=== PATIENT | female | born 1935 | race Caucasian/White ===

== ENCOUNTER 2017-07-04 11:46 | Inpatient (IN) ==
[2017-07-04 12:37] LABS: Basophils # 0.1 10*3/uL (0.0-0.2); Basophils % 0.9 % (0.0-0.8); Eosinophils # 0.3 10*3/uL (0.0-0.87); Eosinophils % 2.1 % (0.00-10.9); Hematocrit 39.7 VOL% (35.7-47.0); Hemoglobin 13.1 GM/DL (12.0-16.0); Immature Granulocytes % 0.4 %; Immature Granulocytes Absolute 0.05 #; Lymphocytes # 5.7 10*3/uL (1.4-4.0); Lymphocytes % 40.6 % (21.3-54.2); Mean Corpuscular Hemoglobin 32 PG (27-34); Mean Corpuscular Volume 96.8 FL (87-102); Mean Platelet Volume 11.1 FL (9.6-12.0); Monocytes # 1.1 10*3/uL (0.11-0.8); Monocytes % 7.6 % (1.7-12.7); Neutrophils # 6.8 10*3/uL (1.4-7.4); Neutrophils % 48.4 % (38.7-73.9); Platelet Count 199 T/CUMM (130-400); Red Cell Distribution Width 14.2 % (9.3-17.3); White Blood Count 14.1 T/CUMM (4-12)
[2017-07-04 12:46] LABS: PT Patient Result 10.2 SECS; Partial Thromboplastin Time 25.7 SECS (0-40)
[2017-07-04 13:41] LABS: Alanine Aminotransferase 19 U/L (13-56); Albumin 3.7 G/DL (3.4-5.0); Alkaline Phosphatase 93 U/L (45-117); Aspartate Amino Transferase 17 U/L (0-37); Blood Urea Nitrogen 15 MG/DL (7-18); Glucose 117 MG/DL (74-106); Osmolality,Calculated 280.4 MOS/KG (273-304); Potassium 4.3 MMOL/L (3.5-5.1); Sodium 140 MMOL/L (136-145); Total Protein 6.6 G/DL (6.4-8.3); Troponin I Only < 0.015 NG/ML (0.00-0.045)
[2017-07-04] MEDS ORDERED: ONDANSETRON 4 MG/2 ML VIAL IV PRN (15:04)
[2017-07-04] MEDS ORDERED: LABETALOL 20 MG/4 ML SYRINGE IV PRN (15:04)
[2017-07-04] MEDS ORDERED: MORPHINE 2 MG/1 ML SYRINGE IV PRN (15:04)
[2017-07-04] MEDS ORDERED: DOCUSATE SODIUM 100 MG CAPSULE PO PRN (15:04)
[2017-07-04] MEDS ORDERED: BISACODYL 5 MG TABLET PO PRN (15:04)
[2017-07-04] MEDS ORDERED: ACETAMINOPHEN 325 MG TABLET PO PRN (15:04)
[2017-07-04] MEDS ORDERED: ENOXAPARIN 40 MG/0.4 ML SYRINGE SUBCUT SCH (15:30)
[2017-07-04] MEDS: ASPIRIN 325 MG TABLET PO SCH (16:17)
[2017-07-04] MEDS: SODIUM CHLORIDE 0.9% 1,000 ML IV SCH ×2 (16:17→23:45)
[2017-07-04] MEDS ORDERED: GLUCAGON 1 MG VIAL IM PRN (16:51)
[2017-07-04] MEDS ORDERED: DEXTROSE 50% 25 GM/50 ML VIAL IV PRN (16:51)
[2017-07-04] MEDS: DILTIAZEM INJ 100 MG in SODIUM CHLORIDE 0.9% 100 ML IV SCH (18:29)
[2017-07-04] MEDS: INSULIN LISPRO 100 UNIT/ML SUBCUT SCH (20:11)
[2017-07-04] MEDS: ATORVASTATIN 40 MG TABLET PO SCH (20:34)
[2017-07-04 21:49] LABS: Apearance,Urine Slightly Hazy (Clear); Bacteria,Urine Occasional /HPF (Few); Bilirubin,Urine Negative (Negative); Blood, Urine Negative (Negative); Glucose,Urine (UA) Negative (Negative); Ketones,Urine 5 mg/dL (Negative); Nitrite,Urine Negative (Negative); Protein,Urine Negative; RBC,Urine <1 /HPF (0-4); Squamous Epithelial Cell,Urine Occasional /HPF (0-10); Urine Color Yellow (Yellow); Urine Specific Gravity 1.005 (1.001-1.035); Urine Urobilinogen < 2.0 EU/DL (0.2-1.0); WBC,Urine 4 /HPF (0-6)
[2017-07-04 21:53] LABS: Barbiturates Screen,Urine Negative (Negative); Benzodiazepines Screen,Urine Negative (Negative); Cannabinoid Screen,Urine Negative (Negative); Opiate Screen,Urine Negative (Negative); Phencyclidine Screen,Urine Negative (Negative)
[2017-07-05] MEDS: DILTIAZEM INJ 100 MG in SODIUM CHLORIDE 0.9% 100 ML IV SCH (03:56)
[2017-07-05 06:14] LABS: Risk Ratio 4.83
[2017-07-05] MEDS: SODIUM CHLORIDE 0.9% 1,000 ML IV SCH (07:40)
[2017-07-05] MEDS: INSULIN LISPRO 100 UNIT/ML SUBCUT SCH ×4 (08:31→20:25)
[2017-07-05] MEDS: PANTOPRAZOLE 40 MG TABLET PO SCH (09:33)
[2017-07-05] MEDS: ASPIRIN 325 MG TABLET PO SCH (09:33)
[2017-07-05] MEDS: APIXABAN 5 MG TABLET PO SCH ×2 (09:37→20:27)
[2017-07-05 09:48] LABS: Basophils # 0.1 10*3/uL (0.0-0.2); Basophils % 0.7 % (0.0-0.8); Eosinophils # 0.3 10*3/uL (0.0-0.87); Hematocrit 42.3 VOL% (35.7-47.0); Hemoglobin 14.4 GM/DL (12.0-16.0); Immature Granulocytes % 0.4 %; Immature Granulocytes Absolute 0.06 #; Lymphocytes # 7.5 10*3/uL (1.4-4.0); Lymphocytes % 45.9 % (21.3-54.2); Mean Corpuscular Hemoglobin 32 PG (27-34); Mean Corpuscular Volume 95.1 FL (87-102); Mean Platelet Volume 10.9 FL (9.6-12.0); Monocytes # 1.2 10*3/uL (0.11-0.8); Monocytes % 7.1 % (1.7-12.7); Neutrophils # 7.2 10*3/uL (1.4-7.4); Neutrophils % 43.9 % (38.7-73.9); Platelet Count 214 T/CUMM (130-400); Red Blood Count 4.45 MC/CUMM (3.8-5.5); Red Cell Distribution Width 14.6 % (9.3-17.3); White Blood Count 16.3 T/CUMM (4-12)
[2017-07-05 10:13] LABS: Calcium 8.7 MG/DL (8.5-10.1); Potassium 4.5 MMOL/L (3.5-5.1)
[2017-07-05 10:30] LABS: Band Neutrophils 1 % (0-10); Eosinophils 4 % (0-10); Hypochromasia 1+; Lymphocytes 35 % (20-55); Total Cells Counted 100
[2017-07-05 10:31] LABS: Smudge Cells Few
[2017-07-05 10:32] LABS: Platelet Estimate Normal; Segmented Neutrophils 49 % (50-85)
[2017-07-05] MEDS: DILTIAZEM 30 MG TABLET PO SCH ×4 (12:17→20:26)
[2017-07-05] MEDS: METOPROLOL TARTRATE 50 MG TABLET PO SCH ×2 (13:59→23:18)
[2017-07-05] MEDS: DOXYCYCLINE HYCLATE 100 MG CAPSULE PO SCH (20:26)
[2017-07-05] MEDS: ATORVASTATIN 40 MG TABLET PO SCH (20:26)
[2017-07-05] MEDS: DULoxetine 30 MG CAPSULE PO SCH (20:27)
[2017-07-06 05:14] LABS: Basophils # 0.1 10*3/uL (0.0-0.2); Basophils % 0.6 % (0.0-0.8); Eosinophils # 0.4 10*3/uL (0.0-0.87); Eosinophils % 2.3 % (0.00-10.9); Hematocrit 41.5 VOL% (35.7-47.0); Hemoglobin 14.3 GM/DL (12.0-16.0); Immature Granulocytes % 0.4 %; Immature Granulocytes Absolute 0.06 #; Lymphocytes # 7.3 10*3/uL (1.4-4.0); Lymphocytes % 46.4 % (21.3-54.2); Mean Corpuscular HGB Conc 34.5 GM/DL (32-36); Mean Corpuscular Hemoglobin 33 PG (27-34); Mean Corpuscular Volume 94.3 FL (87-102); Mean Platelet Volume 11.3 FL (9.6-12.0); Monocytes # 1.4 10*3/uL (0.11-0.8); Monocytes % 8.9 % (1.7-12.7); Neutrophils # 6.5 10*3/uL (1.4-7.4); Neutrophils % 41.4 % (38.7-73.9); Platelet Count 210 T/CUMM (130-400); Red Cell Distribution Width 14.6 % (9.3-17.3); White Blood Count 15.7 T/CUMM (4-12)
[2017-07-06 05:31] LABS: Calcium 8.7 MG/DL (8.5-10.1); Osmolality,Calculated 280.3 MOS/KG (273-304); Potassium 3.9 MMOL/L (3.5-5.1)
[2017-07-06 05:37] LABS: Calcium 8.7 MG/DL (8.5-10.1); Osmolality,Calculated 280.3 MOS/KG (273-304); Potassium 4.4 MMOL/L (3.5-5.1)
[2017-07-06 05:41] LABS: Band Neutrophils 2 % (0-10); Eosinophils 2 % (0-10); Lymphocytes 29 % (20-55); Segmented Neutrophils 59 % (50-85); Total Cells Counted 100
[2017-07-06 05:42] LABS: Atypical Lymphocytes Few; Microcytosis Slight
[2017-07-06 05:43] LABS: Platelet Estimate Normal; Smudge Cells Few
[2017-07-06] MEDS: INSULIN LISPRO 100 UNIT/ML SUBCUT SCH ×4 (08:44→20:54)
[2017-07-06] MEDS: METOPROLOL TARTRATE 50 MG TABLET PO SCH ×2 (09:37→20:54)
[2017-07-06] MEDS: DOXYCYCLINE HYCLATE 100 MG CAPSULE PO SCH ×2 (09:38→20:54)
[2017-07-06] MEDS: PANTOPRAZOLE 40 MG TABLET PO SCH (09:38)
[2017-07-06] MEDS: ASPIRIN EC 81 MG TABLET PO SCH (09:38)
[2017-07-06] MEDS: DILTIAZEM 30 MG TABLET PO SCH (09:38)
[2017-07-06] MEDS: APIXABAN 5 MG TABLET PO SCH ×2 (09:39→20:54)
[2017-07-06] MEDS: DULoxetine 30 MG CAPSULE PO SCH ×2 (09:40→20:54)
[2017-07-06] MEDS: DILTIAZEM 60 MG TABLET PO SCH ×3 (13:28→20:53)
[2017-07-06] MEDS: ATORVASTATIN 40 MG TABLET PO SCH (20:54)
[2017-07-07 05:44] LABS: Basophils # 0.1 10*3/uL (0.0-0.2); Basophils % 0.7 % (0.0-0.8); Eosinophils # 0.4 10*3/uL (0.0-0.87); Eosinophils % 2.5 % (0.00-10.9); Hematocrit 39.8 VOL% (35.7-47.0); Hemoglobin 13.3 GM/DL (12.0-16.0); Immature Granulocytes % 0.3 %; Immature Granulocytes Absolute 0.05 #; Lymphocytes % 49.3 % (21.3-54.2); Mean Corpuscular HGB Conc 33.4 GM/DL (32-36); Mean Corpuscular Hemoglobin 32 PG (27-34); Mean Corpuscular Volume 96.1 FL (87-102); Mean Platelet Volume 11.1 FL (9.6-12.0); Monocytes # 1.4 10*3/uL (0.11-0.8); Monocytes % 8.4 % (1.7-12.7); Neutrophils # 6.3 10*3/uL (1.4-7.4); Neutrophils % 38.8 % (38.7-73.9); Platelet Count 202 T/CUMM (130-400); Red Blood Count 4.14 MC/CUMM (3.8-5.5); Red Cell Distribution Width 14.5 % (9.3-17.3); White Blood Count 16.1 T/CUMM (4-12)
[2017-07-07 06:09] LABS: Calcium 8.5 MG/DL (8.5-10.1); Osmolality,Calculated 282.4 MOS/KG (273-304); Potassium 3.7 MMOL/L (3.5-5.1)
[2017-07-07 06:16] LABS: Band Neutrophils 2 % (0-10); Eosinophils 3 % (0-10); Lymphocytes 43 % (20-55); Segmented Neutrophils 44 % (50-85); Total Cells Counted 100
[2017-07-07 06:17] LABS: Atypical Lymphocytes Few; Hypochromasia 1+; Microcytosis Slight; Smudge Cells Few
[2017-07-07 06:18] LABS: Platelet Estimate Adequate
[2017-07-07 06:46] LABS: Calcium 8.9 MG/DL (8.5-10.1); Osmolality,Calculated 282.4 MOS/KG (273-304); Potassium 3.8 MMOL/L (3.5-5.1)
[2017-07-07] MEDS: INSULIN LISPRO 100 UNIT/ML SUBCUT SCH ×3 (08:56→17:18)
[2017-07-07] MEDS: ASPIRIN EC 81 MG TABLET PO SCH (10:04)
[2017-07-07] MEDS: METOPROLOL TARTRATE 50 MG TABLET PO SCH (10:04)
[2017-07-07] MEDS: DULoxetine 30 MG CAPSULE PO SCH (10:04)
[2017-07-07] MEDS: DOXYCYCLINE HYCLATE 100 MG CAPSULE PO SCH (10:05)
[2017-07-07] MEDS: PANTOPRAZOLE 40 MG TABLET PO SCH (10:05)
[2017-07-07] MEDS: APIXABAN 5 MG TABLET PO SCH (10:05)
[2017-07-07] MEDS: DILTIAZEM 60 MG TABLET PO SCH (10:05)
[2017-07-07 17:18] VITALS: BP 159/78
[2017-07-07] MEDS ORDERED: DILTIAZEM CD 240 MG CAPSULE PO SCH (21:00)
== END 2017-07-07 17:35 | disposition home or self-care (01) | DRG 65 ==
LOC: EDUNIT# → EDBD → N.ED 11:46 → N.EDINP 14:43 → N.5E 15:49 → N.CC 18:22
PROVIDERS: ADMIT Hospitalist; ATTEND Hospitalist

== ENCOUNTER 2018-10-30 11:35 | Observation (INO) ==
[2018-10-30] MEDS ORDERED: ASPIRIN 325 MG TABLET PO STA (12:02)
[2018-10-30 12:08] LABS: Basophils # 0.1 10*3/uL (0.0-0.2); Basophils % 0.8 % (0.0-0.8); Eosinophils # 0.5 10*3/uL (0.0-0.87); Eosinophils % 2.6 % (0.00-10.9); Hemoglobin 13.8 GM/DL (12.0-16.0); Immature Granulocytes % 0.4 %; Immature Granulocytes Absolute 0.07 #; Lymphocytes # 9.8 10*3/uL (1.4-4.0); Lymphocytes % 56.6 % (21.3-54.2); Mean Corpuscular HGB Conc 31.4 GM/DL (32-36); Mean Corpuscular Volume 99.8 FL (87-102); Mean Platelet Volume 11.3 FL (9.6-12.0); Neutrophils % 29.6 % (38.7-73.9); Platelet Count 177 T/CUMM (130-400); Red Blood Count 4.41 MC/CUMM (3.8-5.5); Red Cell Distribution Width 13.7 % (9.3-17.3); White Blood Count 17.3 T/CUMM (4-12)
[2018-10-30 12:17] LABS: PT Patient Result 10.7 SECS; Partial Thromboplastin Time 26.9 SECS (0-40)
[2018-10-30 12:29] LABS: Alanine Aminotransferase 28 U/L (13-56); Albumin 3.8 G/DL (3.4-5.0); Alkaline Phosphatase 103 U/L (45-117); Aspartate Amino Transferase 20 U/L (0-37); Blood Urea Nitrogen 26 MG/DL (7-18); Calcium 9.1 MG/DL (8.5-10.1); Glucose 132 MG/DL (74-106); Osmolality,Calculated 283.5 MOS/KG (273-304); Total Protein 6.7 G/DL (6.4-8.3)
[2018-10-30 13:03] LABS: Eosinophils 3 % (0-10); Lymphocytes 59 % (20-55); Platelet Estimate Normal; Segmented Neutrophils 27 % (50-85)
[2018-10-30 13:04] LABS: Total Cells Counted 100
[2018-10-30 13:05] LABS: Microcytosis Slight
[2018-10-30] MEDS ORDERED: ONDANSETRON 4 MG/2 ML VIAL IV PRN (13:33)
[2018-10-30] MEDS ORDERED: ACETAMINOPHEN 325 MG TABLET PO PRN (13:33)
[2018-10-30] MEDS ORDERED: LACTULOSE 20 GM/30 ML UDCUP PO PRN (13:33)
[2018-10-30] MEDS ORDERED: LORazepam 0.5 MG TABLET PO PRN (13:42)
[2018-10-30] MEDS ORDERED: FUROSEMIDE 40 MG TABLET PO PRN (13:42)
[2018-10-30 14:26] LABS: Folate > 24.0 NG/ML (5.4-24.0); Vitamin B12 625 PG/ML (211-911)
[2018-10-30 14:27] LABS: Risk Ratio 3.38; Thyroid Stimulating Hormone 4.42 uIU/ml (0.358-3.74); VLDL CHOLESTEROL 36.6 MG/DL
[2018-10-30] MEDS: SODIUM CHLORIDE 0.9% 1,000 ML IV SCH (20:28)
[2018-10-30] MEDS: DULoxetine 30 MG CAPSULE PO SCH (20:37)
[2018-10-30] MEDS ORDERED: LOSARTAN 50 MG TABLET PO SCH (21:00)
[2018-10-30] MEDS ORDERED: SIMVASTATIN 20 MG TABLET PO SCH (21:00)
[2018-10-30] MEDS ORDERED: APIXABAN 5 MG TABLET PO SCH (21:00)
[2018-10-30 22:21] LABS: Apearance,Urine CLEAR (Clear); Bacteria,Urine Many /HPF (Few); Bilirubin,Urine Negative (Negative); Blood, Urine Negative (Negative); Glucose,Urine (UA) Negative (Negative); Hyaline Casts,Urine 1 /LPF (0-3); Ketones,Urine Negative (Negative); Nitrite,Urine Positive (Negative); Protein,Urine Negative; RBC,Urine <1 /HPF (0-4); Squamous Epithelial Cell,Urine Occasional /HPF (0-10); Urine Color Yellow (Yellow); Urine Specific Gravity 1.008 (1.001-1.035); Urine Urobilinogen < 2.0 EU/DL (0.2-1.0); WBC,Urine 2 /HPF (0-6)
[2018-10-30 22:23] LABS: Barbiturates Screen,Urine Negative (Negative); Benzodiazepines Screen,Urine Negative (Negative); Cannabinoid Screen,Urine Negative (Negative); Opiate Screen,Urine Negative (Negative); Phencyclidine Screen,Urine Negative (Negative)
[2018-10-31 05:03] LABS: Basophils # 0.1 10*3/uL (0.0-0.2); Basophils % 0.7 % (0.0-0.8); Eosinophils # 0.5 10*3/uL (0.0-0.87); Eosinophils % 2.9 % (0.00-10.9); Hematocrit 40.1 VOL% (35.7-47.0); Hemoglobin 12.6 GM/DL (12.0-16.0); Immature Granulocytes % 0.4 %; Immature Granulocytes Absolute 0.06 #; Lymphocytes # 9.4 10*3/uL (1.4-4.0); Lymphocytes % 57.2 % (21.3-54.2); Mean Corpuscular HGB Conc 31.4 GM/DL (32-36); Mean Corpuscular Volume 98.8 FL (87-102); Mean Platelet Volume 11.4 FL (9.6-12.0); Monocytes % 9.4 % (1.7-12.7); Neutrophils % 29.4 % (38.7-73.9); Platelet Count 158 T/CUMM (130-400); Red Blood Count 4.06 MC/CUMM (3.8-5.5); Red Cell Distribution Width 13.6 % (9.3-17.3); White Blood Count 16.4 T/CUMM (4-12)
[2018-10-31 05:16] LABS: Calcium 8.3 MG/DL (8.5-10.1); Osmolality,Calculated 283.3 MOS/KG (273-304)
[2018-10-31 05:35] LABS: Eosinophils 5 % (0-10); Lymphocytes 47 % (20-55); Segmented Neutrophils 40 % (50-85); Total Cells Counted 100
[2018-10-31 05:36] LABS: Hypochromasia 1+; Microcytosis Slight; Platelet Estimate Adequate; Smudge Cells Few
[2018-10-31] MEDS ORDERED: LEVOFLOXACIN INJ 500 MG in PREMIX 1 EACH IV SCH (07:30)
[2018-10-31] MEDS ORDERED: RIVAROXABAN 20 MG TABLET PO SCH (08:00)
[2018-10-31] MEDS: DULoxetine 30 MG CAPSULE PO SCH (08:27)
[2018-10-31] MEDS ORDERED: PANTOPRAZOLE 40 MG TABLET PO SCH (09:00)
[2018-10-31] MEDS ORDERED: MOVE FREE JOINT HEALTH PO SCH (09:00)
[2018-10-31] MEDS ORDERED: RALOXIFENE 60 MG TABLET PO SCH (09:00)
[2018-10-31] MEDS ORDERED: POTASSIUM CHLORIDE 20 MEQ TABLET PO SCH (09:00)
[2018-10-31] MEDS ORDERED: METOPROLOL SUCCINATE XL 100 MG TABLET PO SCH (09:00)
[2018-10-31] MEDS ORDERED: ASPIRIN EC 81 MG TABLET PO SCH (09:00)
[2018-10-31 15:33] VITALS: BP 109/73
[2018-10-31] MEDS: SODIUM CHLORIDE 0.9% 1,000 ML IV SCH (17:44)
[2018-10-31] MEDS ORDERED: LOSARTAN 25 MG TABLET PO SCH (21:00)
== END 2018-10-31 17:21 ==
LOC: N.EDINP 11:35 → N.ED 11:35 → N.EDINP 15:20 → N.4E 16:03
PROVIDERS: ADMIT Internal Medicine; ATTEND Internal Medicine

== ENCOUNTER 2019-04-12 03:12 | Inpatient (IN) ==
[2019-04-12] MEDS ORDERED: AMIODARONE INJ 150 MG in DEXTROSE 5% 100 ML IV ONE (03:28)
[2019-04-12] MEDS ORDERED: AMIODARONE INJ 450 MG in DEXTROSE 5% 241 ML IV SCH ×2 (03:30→05:00)
[2019-04-12 03:46] LABS: Basophils # 0.1 10*3/uL (0.0-0.2); Basophils % 0.7 % (0.0-0.8); Eosinophils # 0.1 10*3/uL (0.0-0.87); Eosinophils % 0.6 % (0.00-10.9); Hematocrit 42.7 VOL% (35.7-47.0); Hemoglobin 13.6 GM/DL (12.0-16.0); Immature Granulocytes % 0.3 %; Immature Granulocytes Absolute 0.04 #; Lymphocytes # 4.4 10*3/uL (1.4-4.0); Mean Corpuscular HGB Conc 31.9 GM/DL (32-36); Mean Corpuscular Volume 95.7 FL (87-102); Mean Platelet Volume 10.8 FL (9.6-12.0); Monocytes % 7.7 % (1.7-12.7); Neutrophils % 61.7 % (38.7-73.9); Platelet Count 225 T/CUMM (130-400); Red Blood Count 4.46 MC/CUMM (3.8-5.5); Red Cell Distribution Width 13.9 % (9.3-17.3); White Blood Count 15.1 T/CUMM (4-12)
[2019-04-12 04:04] LABS: Albumin 3.2 G/DL (3.4-5.0); Bilirubin,Total 0.6 MG/DL (0.2-1.0); Calcium 8.9 MG/DL (8.5-10.1); Osmolality,Calculated 278.7 MOS/KG (273-304); Total Protein 7.1 G/DL (6.4-8.3)
[2019-04-12] MEDS ORDERED: cefTRIAXone 1,000 MG in SODIUM CHLORIDE 0.9% 100 ML IV STA (04:27)
[2019-04-12 04:36] LABS: Apearance,Urine Slightly Hazy (Clear); Bacteria,Urine Many /HPF (Few); Bilirubin,Urine Negative (Negative); Blood, Urine Negative (Negative); Glucose,Urine (UA) Negative (Negative); Ketones,Urine 5 mg/dL (Negative); Mucus,Urine Occasional /LPF (Occasional); Nitrite,Urine Negative (Negative); Protein,Urine 100 MG/DL; Squamous Epithelial Cell,Urine Occasional /HPF (0-10); Urine Specific Gravity 1.023 (1.001-1.035); Urine Urobilinogen < 2.0 EU/DL (0.2-1.0); WBC,Urine 5 /HPF (0-6)
[2019-04-12] MEDS ORDERED: cefTRIAXone 500 MG VIAL ONE (04:36)
[2019-04-12 04:37] LABS: Urine Color Dark Yellow (Yellow)
[2019-04-12] MEDS ORDERED: ZALEPLON 5 MG CAPSULE PO PRN (04:43)
[2019-04-12] MEDS ORDERED: DOCUSATE SODIUM 100 MG CAPSULE PO PRN (04:43)
[2019-04-12] MEDS ORDERED: GLUCAGON 1 MG VIAL IM PRN (04:43)
[2019-04-12] MEDS ORDERED: DEXTROSE 10% 250 ML BAG IV PRN (04:43)
[2019-04-12] MEDS ORDERED: guaiFENesin/DM ER 600-30 MG TABLET PO PRN (04:43)
[2019-04-12] MEDS: AZITHROMYCIN INJ 500 MG in SODIUM CHLORIDE 0.9% 250 ML IV SCH (07:22)
[2019-04-12] MEDS ORDERED: LORazepam 0.5 MG TABLET PO PRN (07:43)
[2019-04-12] MEDS ORDERED: FUROSEMIDE 40 MG TABLET PO PRN (07:43)
[2019-04-12] MEDS ORDERED: METOPROLOL TARTRATE 5 MG/5 ML VIAL IV ONE (07:47)
[2019-04-12] MEDS ORDERED: MOVE FREE JOINT HEALTH PO SCH (09:00)
[2019-04-12] MEDS ORDERED: POTASSIUM CHLORIDE 20 MEQ TABLET PO SCH (09:00)
[2019-04-12] MEDS ORDERED: METOPROLOL SUCCINATE XL 100 MG TABLET PO SCH (09:00)
[2019-04-12] MEDS ORDERED: APIXABAN 2.5 MG TABLET PO SCH (09:00)
[2019-04-12] MEDS: ROSUVASTATIN 20 MG TABLET PO SCH (10:02)
[2019-04-12] MEDS: NITROGLYCERIN 2% OINT 1 INCH/GM PACK TOP SCH ×3 (10:02→18:10)
[2019-04-12] MEDS: PANTOPRAZOLE 40 MG TABLET PO SCH (10:02)
[2019-04-12] MEDS: DULoxetine 30 MG CAPSULE PO SCH ×2 (10:02→20:20)
[2019-04-12] MEDS: RALOXIFENE 60 MG TABLET PO SCH (10:02)
[2019-04-12] MEDS: ASPIRIN EC 81 MG TABLET PO SCH (10:02)
[2019-04-12] MEDS: RIVAROXABAN 20 MG TABLET PO SCH (10:03)
[2019-04-12] MEDS ORDERED: FUROSEMIDE 40 MG/4 ML VIAL ONE (10:48)
[2019-04-12] MEDS ORDERED: FUROSEMIDE 40 MG/4 ML VIAL IV SCH (10:50)
[2019-04-12] MEDS ORDERED: FUROSEMIDE 40 MG/4 ML VIAL IV ONE ×2 (10:50→12:40)
[2019-04-12] MEDS ORDERED: methylPREDNISolone SOD SUC 125 MG/2 ML VIAL ONE (10:50)
[2019-04-12] MEDS ORDERED: LEVALBUTEROL 1.25 MG/3 ML NEB RESP TX ONE (10:50)
[2019-04-12] MEDS ORDERED: methylPREDNISolone SOD SUC 125 MG/2 ML VIAL IV ONE (10:50)
[2019-04-12 11:16] LABS: ABG Base Excess -8.2 MMOL/L (-2.5-2.5); ABG Oxygen Saturation 99.5 % (95-100); ABG PCO2 37.5 MM HG (35-48); ABG PH 7.287 (7.35-7.45); ABG TCO2 15.7 MMOL/L (23-27)
[2019-04-12] MEDS: METOPROLOL SUCCINATE XL 100 MG TABLET PO SCH (11:18)
[2019-04-12] MEDS: INSULIN LISPRO 100 UNIT/ML SUBCUT SCH ×4 (11:18→20:43)
[2019-04-12 11:45] LABS: Apearance,Urine CLOUDY (Clear); Bacteria,Urine Many /HPF (Few); Bilirubin,Urine Negative (Negative); Blood, Urine Negative (Negative); Glucose,Urine (UA) Negative (Negative); Hyaline Casts,Urine 62 /LPF (0-3); Ketones,Urine 20 mg/dL (Negative); Mucus,Urine Many /LPF (Occasional); Nitrite,Urine Negative (Negative); Protein,Urine 100 MG/DL; RBC,Urine 11 /HPF (0-4); Squamous Epithelial Cell,Urine Occasional /HPF (0-10); Urine Color Amber (Yellow); Urine Specific Gravity 1.028 (1.001-1.035); Urine Urobilinogen < 2.0 EU/DL (0.2-1.0); WBC,Urine 54 /HPF (0-6)
[2019-04-12 13:07] LABS: Calcium 8.8 MG/DL (8.5-10.1)
[2019-04-12] MEDS: METOPROLOL TARTRATE 5 MG/5 ML VIAL IV PRN ×3 (13:18→20:21)
[2019-04-12 13:34] LABS: Basophils % 0.2 % (0.0-0.8); Hematocrit 43.2 VOL% (35.7-47.0); Hemoglobin 13.9 GM/DL (12.0-16.0); Immature Granulocytes % 0.9 %; Immature Granulocytes Absolute 0.12 #; Lymphocytes # 2.9 10*3/uL (1.4-4.0); Lymphocytes % 21.7 % (21.3-54.2); Mean Corpuscular HGB Conc 32.2 GM/DL (32-36); Mean Corpuscular Volume 95.4 FL (87-102); Mean Platelet Volume 11.4 FL (9.6-12.0); Monocytes % 4.8 % (1.7-12.7); Neutrophils % 72.4 % (38.7-73.9); Platelet Count 202 T/CUMM (130-400); Red Blood Count 4.53 MC/CUMM (3.8-5.5); White Blood Count 13.5 T/CUMM (4-12)
[2019-04-12 13:46] LABS: INR 1.6; PT Patient Result 17.1 SECS (9.6-12.2)
[2019-04-12] MEDS: FUROSEMIDE 40 MG/4 ML VIAL IV SCH (16:36)
[2019-04-13] MEDS: NITROGLYCERIN 2% OINT 1 INCH/GM PACK TOP SCH ×4 (00:41→18:59)
[2019-04-13 04:55] LABS: Basophils % 0.1 % (0.0-0.8); Hematocrit 40.5 VOL% (35.7-47.0); Hemoglobin 13.2 GM/DL (12.0-16.0); Immature Granulocytes % 0.4 %; Immature Granulocytes Absolute 0.09 #; Lymphocytes # 6.9 10*3/uL (1.4-4.0); Lymphocytes % 30.4 % (21.3-54.2); Mean Corpuscular HGB Conc 32.6 GM/DL (32-36); Mean Corpuscular Volume 93.8 FL (87-102); Mean Platelet Volume 11.7 FL (9.6-12.0); Monocytes % 4.1 % (1.7-12.7); Platelet Count 197 T/CUMM (130-400); Red Blood Count 4.32 MC/CUMM (3.8-5.5); Red Cell Distribution Width 13.9 % (9.3-17.3); White Blood Count 22.6 T/CUMM (4-12)
[2019-04-13] MEDS: cefTRIAXone 1,000 MG in SYRINGE 1 EACH IV SCH (05:10)
[2019-04-13 05:30] LABS: Calcium 8.9 MG/DL (8.5-10.1)
[2019-04-13 05:41] LABS: Band Neutrophils 3 % (0-10); Lymphocytes 25 % (20-55); Metamyelocytes 1 %; Reactive Lymphocytes Few; Segmented Neutrophils 67 % (50-85); Total Cells Counted 100
[2019-04-13 05:42] LABS: Ovalocytes 1+; Platelet Estimate Normal
[2019-04-13] MEDS: AZITHROMYCIN INJ 500 MG in SODIUM CHLORIDE 0.9% 250 ML IV SCH (06:20)
[2019-04-13] MEDS: INSULIN LISPRO 100 UNIT/ML SUBCUT SCH ×4 (07:47→20:42)
[2019-04-13] MEDS ORDERED: DIGOXIN 0.5 MG/2 ML AMP IV ONE ×2 (08:33→15:00)
[2019-04-13] MEDS: PANTOPRAZOLE 40 MG TABLET PO SCH (08:36)
[2019-04-13] MEDS: RALOXIFENE 60 MG TABLET PO SCH (08:36)
[2019-04-13] MEDS: ASPIRIN EC 81 MG TABLET PO SCH (08:36)
[2019-04-13] MEDS: RIVAROXABAN 20 MG TABLET PO SCH (08:36)
[2019-04-13] MEDS: FUROSEMIDE 40 MG/4 ML VIAL IV SCH ×2 (08:37→16:54)
[2019-04-13] MEDS: ROSUVASTATIN 20 MG TABLET PO SCH (08:37)
[2019-04-13] MEDS: DULoxetine 30 MG CAPSULE PO SCH ×2 (08:37→20:42)
[2019-04-13] MEDS: METOPROLOL SUCCINATE XL 100 MG TABLET PO SCH (08:53)
[2019-04-13 13:56] LABS: ABG Base Excess -0.6 MMOL/L (-2.5-2.5); ABG HCO3 23.9 MMOL/L (20-26); ABG Oxygen Saturation 99.1 % (95-100); ABG PCO2 40.1 MM HG (35-48); ABG PH 7.389 (7.35-7.45); Pt O2 Delivery Device Other
[2019-04-14] MEDS: NITROGLYCERIN 2% OINT 1 INCH/GM PACK TOP SCH ×4 (00:42→18:20)
[2019-04-14] MEDS ORDERED: NITROGLYCERIN SL 0.4 MG TABLET SL ONE (03:48)
[2019-04-14] MEDS ORDERED: ASPIRIN CHEW 81 MG TABLET PO ONE (03:48)
[2019-04-14] MEDS ORDERED: NITROGLYCERIN SL 0.4 MG TABLET SL PRN (03:48)
[2019-04-14] MEDS ORDERED: MORPHINE 4 MG/1 ML VIAL IV PRN (03:48)
[2019-04-14] MEDS ORDERED: ASPIRIN 325 MG TABLET ONE (03:48)
[2019-04-14 04:05] LABS: Basophils # 0.1 10*3/uL (0.0-0.2); Basophils % 0.3 % (0.0-0.8); Eosinophils # 0.2 10*3/uL (0.0-0.87); Eosinophils % 0.9 % (0.00-10.9); Hematocrit 42.6 VOL% (35.7-47.0); Hemoglobin 13.8 GM/DL (12.0-16.0); Immature Granulocytes % 0.5 %; Immature Granulocytes Absolute 0.13 #; Lymphocytes % 45.7 % (21.3-54.2); Mean Corpuscular HGB Conc 32.4 GM/DL (32-36); Mean Corpuscular Volume 93.8 FL (87-102); Mean Platelet Volume 10.9 FL (9.6-12.0); Monocytes % 6.2 % (1.7-12.7); Neutrophils % 46.4 % (38.7-73.9); Platelet Count 219 T/CUMM (130-400); Red Blood Count 4.54 MC/CUMM (3.8-5.5); Red Cell Distribution Width 13.8 % (9.3-17.3); White Blood Count 24.1 T/CUMM (4-12)
[2019-04-14 04:34] LABS: Calcium 8.2 MG/DL (8.5-10.1); Osmolality,Calculated 280.7 MOS/KG (273-304)
[2019-04-14 04:37] LABS: Lymphocytes 32 % (20-55); Platelet Estimate Adequate; Segmented Neutrophils 60 % (50-85); Total Cells Counted 100
[2019-04-14 04:38] LABS: Polychromasia Slight
[2019-04-14] MEDS: cefTRIAXone 1,000 MG in SYRINGE 1 EACH IV SCH (05:36)
[2019-04-14] MEDS: AZITHROMYCIN INJ 500 MG in SODIUM CHLORIDE 0.9% 250 ML IV SCH (05:40)
[2019-04-14] MEDS: INSULIN LISPRO 100 UNIT/ML SUBCUT SCH ×4 (07:46→20:29)
[2019-04-14] MEDS: RIVAROXABAN 20 MG TABLET PO SCH (09:20)
[2019-04-14] MEDS: ASPIRIN EC 81 MG TABLET PO SCH (09:20)
[2019-04-14] MEDS: FUROSEMIDE 40 MG/4 ML VIAL IV SCH ×2 (09:20→16:14)
[2019-04-14] MEDS: ROSUVASTATIN 20 MG TABLET PO SCH (09:20)
[2019-04-14] MEDS: DULoxetine 30 MG CAPSULE PO SCH ×2 (09:21→20:28)
[2019-04-14] MEDS: RALOXIFENE 60 MG TABLET PO SCH (09:21)
[2019-04-14] MEDS: PANTOPRAZOLE 40 MG TABLET PO SCH (09:21)
[2019-04-14] MEDS: METOPROLOL SUCCINATE XL 100 MG TABLET PO SCH (09:21)
[2019-04-14] MEDS ORDERED: POLYETHYLENE GLYCOL POWDER 17 GM PACK PO PRN (11:52)
[2019-04-14] MEDS: DOCUSATE SODIUM 100 MG CAPSULE PO SCH (12:08)
[2019-04-14] MEDS: DIGOXIN 0.125 MG TABLET PO SCH (12:20)
[2019-04-14] MEDS: IPRATROPIUM 500 MCG/2.5 ML NEB RESP TX SCH ×2 (13:20→19:30)
[2019-04-14] MEDS: NITROFURANTOIN MACRO/MONO 100 MG CAPSULE PO SCH ×2 (14:03→20:29)
[2019-04-14] MEDS: TOBRAMYCIN INJ 300 MG in SODIUM CHLORIDE 0.9% 100 ML IV SCH (16:15)
[2019-04-14] MEDS: BUDESONIDE 0.5 MG/2 ML NEB RESP TX SCH (19:30)
[2019-04-15] MEDS: NITROGLYCERIN 2% OINT 1 INCH/GM PACK TOP SCH ×5 (00:40→23:50)
[2019-04-15 05:16] LABS: Basophils # 0.1 10*3/uL (0.0-0.2); Basophils % 0.4 % (0.0-0.8); Eosinophils # 0.3 10*3/uL (0.0-0.87); Eosinophils % 1.4 % (0.00-10.9); Hematocrit 45.2 VOL% (35.7-47.0); Hemoglobin 14.9 GM/DL (12.0-16.0); Immature Granulocytes % 0.5 %; Lymphocytes % 46.8 % (21.3-54.2); Mean Corpuscular Volume 92.8 FL (87-102); Mean Platelet Volume 10.9 FL (9.6-12.0); Neutrophils % 43.9 % (38.7-73.9); Platelet Count 228 T/CUMM (130-400); Red Blood Count 4.87 MC/CUMM (3.8-5.5); Red Cell Distribution Width 13.7 % (9.3-17.3); White Blood Count 21.4 T/CUMM (4-12)
[2019-04-15 05:30] LABS: Calcium 8.4 MG/DL (8.5-10.1); Osmolality,Calculated 274.8 MOS/KG (273-304)
[2019-04-15 05:42] LABS: Hypochromasia Slight; Platelet Estimate Adequate
[2019-04-15] MEDS: AZITHROMYCIN INJ 500 MG in SODIUM CHLORIDE 0.9% 250 ML IV SCH (05:55)
[2019-04-15] MEDS: IPRATROPIUM 500 MCG/2.5 ML NEB RESP TX SCH ×4 (07:44→19:41)
[2019-04-15] MEDS: BUDESONIDE 0.5 MG/2 ML NEB RESP TX SCH ×2 (07:44→19:41)
[2019-04-15] MEDS ORDERED: MAGNESIUM SULF RIDER 2 GM in PREMIX 1 EACH IV ONE (07:45)
[2019-04-15] MEDS ORDERED: POTASSIUM CHLORIDE RIDER 10 MEQ in PREMIX 1 EACH IV PRN (07:45)
[2019-04-15] MEDS: INSULIN LISPRO 100 UNIT/ML SUBCUT SCH ×4 (07:57→22:01)
[2019-04-15] MEDS ORDERED: TOBRAMYCIN INJ 300 MG in SODIUM CHLORIDE 0.9% 100 ML IV SCH (08:00)
[2019-04-15] MEDS: DULoxetine 30 MG CAPSULE PO SCH ×2 (09:04→22:00)
[2019-04-15] MEDS: NITROFURANTOIN MACRO/MONO 100 MG CAPSULE PO SCH ×2 (09:04→22:01)
[2019-04-15] MEDS: METOPROLOL SUCCINATE XL 100 MG TABLET PO SCH (09:04)
[2019-04-15] MEDS: POTASSIUM CHLORIDE 20 MEQ TABLET PO PRN ×3 (09:04→13:25)
[2019-04-15] MEDS: FUROSEMIDE 40 MG TABLET PO SCH (09:05)
[2019-04-15] MEDS: RALOXIFENE 60 MG TABLET PO SCH (09:05)
[2019-04-15] MEDS: RIVAROXABAN 20 MG TABLET PO SCH (09:05)
[2019-04-15] MEDS: ROSUVASTATIN 20 MG TABLET PO SCH (09:05)
[2019-04-15] MEDS: ASPIRIN EC 81 MG TABLET PO SCH (09:05)
[2019-04-15] MEDS: DOCUSATE SODIUM 100 MG CAPSULE PO SCH (09:05)
[2019-04-15] MEDS: PANTOPRAZOLE 40 MG TABLET PO SCH (09:08)
[2019-04-15] MEDS: DIGOXIN 0.125 MG TABLET PO SCH (13:25)
[2019-04-15] MEDS: TOBRAMYCIN INJ 300 MG in SODIUM CHLORIDE 0.9% 100 ML IV SCH (17:51)
[2019-04-16] MEDS: IPRATROPIUM 500 MCG/2.5 ML NEB RESP TX SCH ×4 (01:10→19:07)
[2019-04-16] MEDS: ACETAMINOPHEN 325 MG TABLET PO PRN ×2 (02:07→20:43)
[2019-04-16 05:00] LABS: Basophils # 0.1 10*3/uL (0.0-0.2); Basophils % 0.5 % (0.0-0.8); Eosinophils # 0.4 10*3/uL (0.0-0.87); Eosinophils % 1.8 % (0.00-10.9); Hematocrit 44.7 VOL% (35.7-47.0); Hemoglobin 14.5 GM/DL (12.0-16.0); Immature Granulocytes % 0.6 %; Immature Granulocytes Absolute 0.12 #; Lymphocytes # 8.2 10*3/uL (1.4-4.0); Lymphocytes % 38.4 % (21.3-54.2); Mean Corpuscular HGB Conc 32.4 GM/DL (32-36); Mean Corpuscular Volume 93.5 FL (87-102); Monocytes % 6.7 % (1.7-12.7); Platelet Count 240 T/CUMM (130-400); Red Blood Count 4.78 MC/CUMM (3.8-5.5); Red Cell Distribution Width 13.4 % (9.3-17.3); White Blood Count 21.5 T/CUMM (4-12)
[2019-04-16 05:15] LABS: Calcium 8.4 MG/DL (8.5-10.1); Osmolality,Calculated 278.5 MOS/KG (273-304)
[2019-04-16 05:22] LABS: Eosinophils 1 % (0-10); Lymphocytes 26 % (20-55); Segmented Neutrophils 68 % (50-85); Total Cells Counted 100
[2019-04-16 05:23] LABS: Platelet Estimate Normal
[2019-04-16 05:24] LABS: Polychromasia Slight
[2019-04-16] MEDS: AZITHROMYCIN INJ 500 MG in SODIUM CHLORIDE 0.9% 250 ML IV SCH (06:55)
[2019-04-16] MEDS: NITROGLYCERIN 2% OINT 1 INCH/GM PACK TOP SCH (07:05)
[2019-04-16] MEDS: BUDESONIDE 0.5 MG/2 ML NEB RESP TX SCH ×2 (07:56→19:07)
[2019-04-16] MEDS: INSULIN LISPRO 100 UNIT/ML SUBCUT SCH ×4 (07:56→20:44)
[2019-04-16] MEDS ORDERED: POTASSIUM CHLORIDE 20 MEQ TABLET PO SCH (09:00)
[2019-04-16] MEDS: ROSUVASTATIN 20 MG TABLET PO SCH (09:22)
[2019-04-16] MEDS: METOPROLOL SUCCINATE XL 100 MG TABLET PO SCH (09:22)
[2019-04-16] MEDS: NITROFURANTOIN MACRO/MONO 100 MG CAPSULE PO SCH (09:22)
[2019-04-16] MEDS: ASPIRIN EC 81 MG TABLET PO SCH (09:23)
[2019-04-16] MEDS: FUROSEMIDE 40 MG TABLET PO SCH (09:23)
[2019-04-16] MEDS: RIVAROXABAN 20 MG TABLET PO SCH (09:23)
[2019-04-16] MEDS: PANTOPRAZOLE 40 MG TABLET PO SCH (09:23)
[2019-04-16] MEDS: RALOXIFENE 60 MG TABLET PO SCH (09:23)
[2019-04-16] MEDS: DOCUSATE SODIUM 100 MG CAPSULE PO SCH (09:23)
[2019-04-16] MEDS: MAGNESIUM CHLORIDE 64 MG TABLET PO SCH (09:24)
[2019-04-16] MEDS: DULoxetine 30 MG CAPSULE PO SCH ×2 (09:24→20:43)
[2019-04-16] MEDS: DIGOXIN 0.125 MG TABLET PO SCH (12:59)
[2019-04-16] MEDS: ERTAPENEM 1,000 MG in SODIUM CHLORIDE 0.9% 100 ML IV SCH (15:23)
[2019-04-17] MEDS: IPRATROPIUM 500 MCG/2.5 ML NEB RESP TX SCH ×4 (00:52→20:08)
[2019-04-17] MEDS: AZITHROMYCIN INJ 500 MG in SODIUM CHLORIDE 0.9% 250 ML IV SCH (06:15)
[2019-04-17 06:27] LABS: Basophils # 0.1 10*3/uL (0.0-0.2); Basophils % 0.6 % (0.0-0.8); Eosinophils # 0.5 10*3/uL (0.0-0.87); Eosinophils % 2.6 % (0.00-10.9); Hematocrit 41.8 VOL% (35.7-47.0); Hemoglobin 13.7 GM/DL (12.0-16.0); Immature Granulocytes % 0.5 %; Immature Granulocytes Absolute 0.09 #; Lymphocytes # 8.9 10*3/uL (1.4-4.0); Lymphocytes % 45.8 % (21.3-54.2); Mean Corpuscular HGB Conc 32.8 GM/DL (32-36); Mean Corpuscular Volume 92.1 FL (87-102); Mean Platelet Volume 10.9 FL (9.6-12.0); Monocytes % 6.6 % (1.7-12.7); Neutrophils % 43.9 % (38.7-73.9); Platelet Count 226 T/CUMM (130-400); Red Blood Count 4.54 MC/CUMM (3.8-5.5); Red Cell Distribution Width 13.4 % (9.3-17.3); White Blood Count 19.4 T/CUMM (4-12)
[2019-04-17 06:44] LABS: Calcium 8.5 MG/DL (8.5-10.1)
[2019-04-17 06:49] LABS: Hypochromasia 1+; Microcytosis 1+; Platelet Estimate Normal
[2019-04-17] MEDS: BUDESONIDE 0.5 MG/2 ML NEB RESP TX SCH ×2 (07:45→20:08)
[2019-04-17] MEDS: ROSUVASTATIN 20 MG TABLET PO SCH (08:57)
[2019-04-17] MEDS: RIVAROXABAN 20 MG TABLET PO SCH (08:58)
[2019-04-17] MEDS: MAGNESIUM CHLORIDE 64 MG TABLET PO SCH (08:58)
[2019-04-17] MEDS: METOPROLOL SUCCINATE XL 100 MG TABLET PO SCH (08:58)
[2019-04-17] MEDS: PANTOPRAZOLE 40 MG TABLET PO SCH (08:58)
[2019-04-17] MEDS: FUROSEMIDE 40 MG TABLET PO SCH (08:58)
[2019-04-17] MEDS: ASPIRIN EC 81 MG TABLET PO SCH (08:58)
[2019-04-17] MEDS: RALOXIFENE 60 MG TABLET PO SCH (08:58)
[2019-04-17] MEDS: DOCUSATE SODIUM 100 MG CAPSULE PO SCH (08:59)
[2019-04-17] MEDS: DULoxetine 30 MG CAPSULE PO SCH ×2 (08:59→22:12)
[2019-04-17] MEDS: INSULIN LISPRO 100 UNIT/ML SUBCUT SCH ×4 (13:01→20:09)
[2019-04-17] MEDS: DIGOXIN 0.125 MG TABLET PO SCH (13:02)
[2019-04-17] MEDS: ERTAPENEM 1,000 MG in SODIUM CHLORIDE 0.9% 100 ML IV SCH (16:02)
[2019-04-18] MEDS: IPRATROPIUM 500 MCG/2.5 ML NEB RESP TX SCH ×4 (00:20→18:56)
[2019-04-18 05:27] LABS: Basophils # 0.1 10*3/uL (0.0-0.2); Basophils % 0.7 % (0.0-0.8); Eosinophils # 0.5 10*3/uL (0.0-0.87); Eosinophils % 2.5 % (0.00-10.9); Hematocrit 42.1 VOL% (35.7-47.0); Hemoglobin 13.8 GM/DL (12.0-16.0); Immature Granulocytes % 0.5 %; Lymphocytes # 7.8 10*3/uL (1.4-4.0); Lymphocytes % 38.3 % (21.3-54.2); Mean Corpuscular HGB Conc 32.8 GM/DL (32-36); Mean Corpuscular Volume 94.6 FL (87-102); Mean Platelet Volume 11.1 FL (9.6-12.0); Platelet Count 237 T/CUMM (130-400); Red Blood Count 4.45 MC/CUMM (3.8-5.5); Red Cell Distribution Width 13.3 % (9.3-17.3); White Blood Count 20.4 T/CUMM (4-12)
[2019-04-18 05:47] LABS: Calcium 8.7 MG/DL (8.5-10.1); Osmolality,Calculated 278.5 MOS/KG (273-304)
[2019-04-18 06:06] LABS: Anisocytosis Slight; Band Neutrophils 9 % (0-10); Eosinophils 2 % (0-10); Lymphocytes 26 % (20-55); Segmented Neutrophils 55 % (50-85); Total Cells Counted 100
[2019-04-18 06:07] LABS: Platelet Estimate Normal; Smudge Cells 1+
[2019-04-18] MEDS: AZITHROMYCIN INJ 500 MG in SODIUM CHLORIDE 0.9% 250 ML IV SCH (06:15)
[2019-04-18] MEDS: RIVAROXABAN 20 MG TABLET PO SCH (07:58)
[2019-04-18] MEDS: BUDESONIDE 0.5 MG/2 ML NEB RESP TX SCH ×2 (08:44→18:56)
[2019-04-18] MEDS: INSULIN LISPRO 100 UNIT/ML SUBCUT SCH ×4 (09:31→20:34)
[2019-04-18] MEDS: ROSUVASTATIN 20 MG TABLET PO SCH (09:33)
[2019-04-18] MEDS: ASPIRIN EC 81 MG TABLET PO SCH (09:33)
[2019-04-18] MEDS: PANTOPRAZOLE 40 MG TABLET PO SCH (09:33)
[2019-04-18] MEDS: RALOXIFENE 60 MG TABLET PO SCH (09:33)
[2019-04-18] MEDS: METOPROLOL SUCCINATE XL 100 MG TABLET PO SCH (09:33)
[2019-04-18] MEDS: FUROSEMIDE 40 MG TABLET PO SCH (09:33)
[2019-04-18] MEDS: MAGNESIUM CHLORIDE 64 MG TABLET PO SCH (09:33)
[2019-04-18] MEDS: DOCUSATE SODIUM 100 MG CAPSULE PO SCH (09:33)
[2019-04-18] MEDS: DULoxetine 30 MG CAPSULE PO SCH ×2 (09:33→20:33)
[2019-04-18] MEDS: DIGOXIN 0.125 MG TABLET PO SCH (13:25)
[2019-04-18] MEDS: ERTAPENEM 1,000 MG in SODIUM CHLORIDE 0.9% 100 ML IV SCH (14:40)
[2019-04-18] MEDS: MEROPENEM 500 MG in SODIUM CHLORIDE 0.9% 100 ML IV SCH ×2 (18:03→23:27)
[2019-04-18] MEDS: ACETAMINOPHEN 325 MG TABLET PO PRN (23:33)
[2019-04-19] MEDS: IPRATROPIUM 500 MCG/2.5 ML NEB RESP TX SCH ×4 (00:15→19:17)
[2019-04-19] MEDS: MEROPENEM 500 MG in SODIUM CHLORIDE 0.9% 100 ML IV SCH ×3 (06:00→18:31)
[2019-04-19] MEDS: BUDESONIDE 0.5 MG/2 ML NEB RESP TX SCH ×2 (07:43→19:17)
[2019-04-19] MEDS: ROSUVASTATIN 20 MG TABLET PO SCH (09:24)
[2019-04-19] MEDS: METOPROLOL SUCCINATE XL 100 MG TABLET PO SCH (09:24)
[2019-04-19] MEDS: RALOXIFENE 60 MG TABLET PO SCH (09:24)
[2019-04-19] MEDS: PANTOPRAZOLE 40 MG TABLET PO SCH (09:24)
[2019-04-19] MEDS: MAGNESIUM CHLORIDE 64 MG TABLET PO SCH (09:24)
[2019-04-19] MEDS: RIVAROXABAN 20 MG TABLET PO SCH (09:24)
[2019-04-19] MEDS: LOSARTAN 25 MG TABLET PO SCH (09:24)
[2019-04-19] MEDS: DULoxetine 30 MG CAPSULE PO SCH ×2 (09:25→20:50)
[2019-04-19] MEDS: ASPIRIN EC 81 MG TABLET PO SCH (09:25)
[2019-04-19] MEDS: FUROSEMIDE 40 MG TABLET PO SCH (09:25)
[2019-04-19] MEDS: DOCUSATE SODIUM 100 MG CAPSULE PO SCH (09:25)
[2019-04-19 09:49] LABS: Basophils # 0.1 10*3/uL (0.0-0.2); Basophils % 0.6 % (0.0-0.8); Eosinophils # 0.4 10*3/uL (0.0-0.87); Eosinophils % 2.3 % (0.00-10.9); Hematocrit 45.9 VOL% (35.7-47.0); Hemoglobin 15.3 GM/DL (12.0-16.0); Immature Granulocytes % 0.4 %; Immature Granulocytes Absolute 0.08 #; Lymphocytes % 47.3 % (21.3-54.2); Mean Corpuscular HGB Conc 33.3 GM/DL (32-36); Mean Corpuscular Volume 93.5 FL (87-102); Mean Platelet Volume 10.7 FL (9.6-12.0); Monocytes % 6.5 % (1.7-12.7); Neutrophils % 42.9 % (38.7-73.9); Platelet Count 272 T/CUMM (130-400); Red Blood Count 4.91 MC/CUMM (3.8-5.5); Red Cell Distribution Width 13.4 % (9.3-17.3); White Blood Count 19.1 T/CUMM (4-12)
[2019-04-19 10:11] LABS: Eosinophils 6 % (0-10); Lymphocytes 41 % (20-55); Segmented Neutrophils 46 % (50-85); Total Cells Counted 100
[2019-04-19 10:12] LABS: Atypical Lymphocytes Few; Hypochromasia Slight; Microcytosis 1+
[2019-04-19 10:13] LABS: Platelet Estimate Normal
[2019-04-19] MEDS: INSULIN LISPRO 100 UNIT/ML SUBCUT SCH ×4 (10:17→20:50)
[2019-04-19] MEDS: DIGOXIN 0.125 MG TABLET PO SCH (12:59)
[2019-04-20] MEDS: MEROPENEM 500 MG in SODIUM CHLORIDE 0.9% 100 ML IV SCH ×2 (00:11→05:45)
[2019-04-20] MEDS: IPRATROPIUM 500 MCG/2.5 ML NEB RESP TX SCH ×2 (00:30→07:35)
[2019-04-20 06:23] LABS: Basophils # 0.1 10*3/uL (0.0-0.2); Basophils % 0.8 % (0.0-0.8); Eosinophils # 0.5 10*3/uL (0.0-0.87); Eosinophils % 2.5 % (0.00-10.9); Hematocrit 43.9 VOL% (35.7-47.0); Hemoglobin 14.5 GM/DL (12.0-16.0); Immature Granulocytes % 0.4 %; Immature Granulocytes Absolute 0.07 #; Lymphocytes # 8.2 10*3/uL (1.4-4.0); Lymphocytes % 44.3 % (21.3-54.2); Mean Corpuscular Volume 93.6 FL (87-102); Mean Platelet Volume 10.8 FL (9.6-12.0); Platelet Count 239 T/CUMM (130-400); Red Blood Count 4.69 MC/CUMM (3.8-5.5); Red Cell Distribution Width 13.3 % (9.3-17.3); White Blood Count 18.5 T/CUMM (4-12)
[2019-04-20 06:37] LABS: Calcium 8.7 MG/DL (8.5-10.1); Osmolality,Calculated 270.8 MOS/KG (273-304)
[2019-04-20 06:42] LABS: Hypochromasia Slight; Microcytosis Slight; Platelet Estimate Adequate
[2019-04-20] MEDS: BUDESONIDE 0.5 MG/2 ML NEB RESP TX SCH (07:35)
[2019-04-20] MEDS: ROSUVASTATIN 20 MG TABLET PO SCH (08:57)
[2019-04-20] MEDS: METOPROLOL SUCCINATE XL 100 MG TABLET PO SCH (08:57)
[2019-04-20] MEDS: DULoxetine 30 MG CAPSULE PO SCH (08:57)
[2019-04-20] MEDS: RALOXIFENE 60 MG TABLET PO SCH (08:57)
[2019-04-20] MEDS: MAGNESIUM CHLORIDE 64 MG TABLET PO SCH (08:57)
[2019-04-20] MEDS: RIVAROXABAN 20 MG TABLET PO SCH (08:58)
[2019-04-20] MEDS: LOSARTAN 25 MG TABLET PO SCH (08:58)
[2019-04-20] MEDS: DOCUSATE SODIUM 100 MG CAPSULE PO SCH (08:58)
[2019-04-20] MEDS: ASPIRIN EC 81 MG TABLET PO SCH (08:58)
[2019-04-20] MEDS: PANTOPRAZOLE 40 MG TABLET PO SCH (08:58)
[2019-04-20] MEDS: FUROSEMIDE 40 MG TABLET PO SCH (08:58)
[2019-04-20] MEDS: INSULIN LISPRO 100 UNIT/ML SUBCUT SCH (10:28)
[2019-04-20 12:02] VITALS: BP 142/79
== END 2019-04-20 12:47 | disposition home health service (06) | DRG 308 ==
LOC: EDUNIT# → EDBD → N.ED 03:12 → N.EDINP 04:43 → N.TELES 05:16 → N.CC 11:09 → N.TELEN 04-15 16:30
PROVIDERS: ADMIT Hospitalist; ATTEND Hospitalist

== ENCOUNTER 2020-10-11 07:32 | Inpatient (IN) ==
[2020-10-11 08:13] LABS: Basophils # 0.1 10*3/uL (0.0-0.2); Basophils % 0.6 % (0.0-0.8); Eosinophils # 0.5 10*3/uL (0.0-0.87); Eosinophils % 2.6 % (0.00-10.9); Hematocrit 37.6 VOL% (35.7-47.0); Hemoglobin 12.3 GM/DL (12.0-16.0); Immature Granulocytes % 0.6 %; Immature Granulocytes Absolute 0.13 #; Lymphocytes # 8.8 10*3/uL (1.4-4.0); Lymphocytes % 41.9 % (21.3-54.2); Mean Corpuscular HGB Conc 32.7 GM/DL (32-36); Mean Corpuscular Volume 92.4 FL (87-102); Mean Platelet Volume 10.4 FL (9.6-12.0); Monocytes % 7.1 % (1.7-12.7); Neutrophils % 47.2 % (38.7-73.9); Platelet Count 285 T/CUMM (130-400); Red Blood Count 4.07 MC/CUMM (3.8-5.5); Red Cell Distribution Width 13.2 % (9.3-17.3)
[2020-10-11 08:30] LABS: Blood Urea Nitrogen 8 MG/DL (7-18); Calcium 9.2 MG/DL (8.5-10.1); Carbon Dioxide 29 MMOL/L (21-32); Estimated Glom Filtration Rate 60 ML/MIN; Glucose 153 MG/DL (74-106); Osmolality,Calculated 273.8 MOS/KG (273-304); Potassium 3.8 MMOL/L (3.5-5.1); Sodium 137 MMOL/L (136-145)
[2020-10-11 08:37] LABS: Eosinophils 4 % (0-10); Hypochromasia Slight; Lymphocytes 33 % (20-55); Microcytosis Slight; Platelet Estimate Adequate; Segmented Neutrophils 56 % (50-85); Total Cells Counted 100
[2020-10-11 08:38] LABS: Atypical Lymphocytes Few
[2020-10-11] MEDS ORDERED: SODIUM CHLORIDE 0.9% 500 ML IV STA (10:26)
[2020-10-11] MEDS ORDERED: LEVOFLOXACIN INJ 500 MG/100 ML PREMIX IV STA (10:28)
[2020-10-11] MEDS ORDERED: GLUCAGON 1 MG VIAL IM PRN (10:50)
[2020-10-11] MEDS ORDERED: ACETAMINOPHEN 325 MG TABLET PO PRN (10:50)
[2020-10-11] MEDS ORDERED: DEXTROSE 50% 25 GM/50 ML VIAL IV PRN (10:50)
[2020-10-11] MEDS ORDERED: ZALEPLON 5 MG CAPSULE PO PRN (10:50)
[2020-10-11] MEDS: ENOXAPARIN 40 MG/0.4 ML SYRINGE SUBCUT SCH (11:37)
[2020-10-11] MEDS: SODIUM CHLORIDE 0.9% 1,000 ML IV SCH ×2 (12:23→21:19)
[2020-10-11] MEDS: LEVOFLOXACIN INJ 750 MG/150 ML PREMIX IV SCH (12:23)
[2020-10-11] MEDS: ALBUTEROL/IPRATROPIUM 3 ML NEB RESP TX SCH ×2 (12:24→19:59)
[2020-10-11] MEDS: DIGOXIN 0.125 MG TABLET PO SCH (12:31)
[2020-10-11] MEDS: DULoxetine 30 MG CAPSULE PO SCH ×2 (12:31→21:17)
[2020-10-11] MEDS: ASPIRIN EC 81 MG TABLET PO SCH (12:31)
[2020-10-11] MEDS: METOPROLOL SUCCINATE XL 100 MG TABLET PO SCH (12:31)
[2020-10-11] MEDS: PANTOPRAZOLE 40 MG TABLET PO SCH (12:32)
[2020-10-11] MEDS: RALOXIFENE 60 MG TABLET PO SCH (12:32)
[2020-10-11] MEDS: POTASSIUM CHLORIDE 20 MEQ TABLET PO SCH (12:32)
[2020-10-11 15:33] LABS: Bilirubin,Urine Negative (Negative); Blood, Urine Negative (Negative); Glucose,Urine (UA) Negative (Negative); Ketones,Urine Negative (Negative); Mucus,Urine Occasional /LPF (Occasional); Nitrite,Urine Negative (Negative); Protein,Urine Negative; Squamous Epithelial Cell,Urine Occasional /HPF (0-10); Urine Appearance Slightly Hazy (Clear); Urine Color Yellow (Yellow); Urine Specific Gravity 1.008 (1.001-1.035); Urine Urobilinogen < 2.0 EU/DL (0.2-1.0)
[2020-10-11] MEDS: SIMVASTATIN 20 MG TABLET PO SCH (21:18)
[2020-10-12] MEDS: ALBUTEROL/IPRATROPIUM 3 ML NEB RESP TX SCH ×4 (00:40→20:12)
[2020-10-12 07:31] LABS: Basophils # 0.1 10*3/uL (0.0-0.2); Basophils % 0.8 % (0.0-0.8); Eosinophils # 0.2 10*3/uL (0.0-0.87); Eosinophils % 1.3 % (0.00-10.9); Hematocrit 36.5 VOL% (35.7-47.0); Hemoglobin 12.3 GM/DL (12.0-16.0); Immature Granulocytes % 0.8 %; Immature Granulocytes Absolute 0.14 #; Lymphocytes # 7.1 10*3/uL (1.4-4.0); Lymphocytes % 41.5 % (21.3-54.2); Mean Corpuscular HGB Conc 33.7 GM/DL (32-36); Mean Platelet Volume 10.7 FL (9.6-12.0); Monocytes % 6.9 % (1.7-12.7); Neutrophils % 48.7 % (38.7-73.9); Platelet Count 278 T/CUMM (130-400); Red Blood Count 4.01 MC/CUMM (3.8-5.5); Red Cell Distribution Width 13.2 % (9.3-17.3)
[2020-10-12 07:53] LABS: Albumin 2.5 G/DL (3.4-5.0); Bilirubin,Total 0.6 MG/DL (0.2-1.0); Calcium 8.8 MG/DL (8.5-10.1); Osmolality,Calculated 275.5 MOS/KG (273-304); Potassium 3.8 MMOL/L (3.5-5.1); Total Protein 6.3 G/DL (6.4-8.2)
[2020-10-12] MEDS: DULoxetine 30 MG CAPSULE PO SCH ×2 (08:51→20:04)
[2020-10-12] MEDS: PANTOPRAZOLE 40 MG TABLET PO SCH (08:51)
[2020-10-12] MEDS: RALOXIFENE 60 MG TABLET PO SCH (08:51)
[2020-10-12] MEDS: DIGOXIN 0.125 MG TABLET PO SCH (08:51)
[2020-10-12] MEDS: POTASSIUM CHLORIDE 20 MEQ TABLET PO SCH (08:52)
[2020-10-12] MEDS: ASPIRIN EC 81 MG TABLET PO SCH (08:52)
[2020-10-12] MEDS: METOPROLOL SUCCINATE XL 100 MG TABLET PO SCH (08:52)
[2020-10-12] MEDS: LOSARTAN 50 MG TABLET PO SCH (08:52)
[2020-10-12] MEDS: ENOXAPARIN 40 MG/0.4 ML SYRINGE SUBCUT SCH (10:09)
[2020-10-12] MEDS: LEVOFLOXACIN INJ 750 MG/150 ML PREMIX IV SCH (12:05)
[2020-10-12] MEDS: guaiFENesin/DM ER 600-30 MG TABLET PO SCH ×2 (12:05→20:04)
[2020-10-12] MEDS ORDERED: APIXABAN 5 MG TABLET PO SCH (13:30)
[2020-10-12] MEDS: SIMVASTATIN 20 MG TABLET PO SCH (20:04)
[2020-10-13] MEDS: ALBUTEROL/IPRATROPIUM 3 ML NEB RESP TX SCH ×2 (01:40→07:50)
[2020-10-13 05:58] LABS: Basophils # 0.1 10*3/uL (0.0-0.2); Basophils % 0.6 % (0.0-0.8); Eosinophils # 0.1 10*3/uL (0.0-0.87); Eosinophils % 0.8 % (0.00-10.9); Hematocrit 35.5 VOL% (35.7-47.0); Hemoglobin 11.6 GM/DL (12.0-16.0); Immature Granulocytes % 1.5 %; Immature Granulocytes Absolute 0.21 #; Lymphocytes # 6.9 10*3/uL (1.4-4.0); Lymphocytes % 48.4 % (21.3-54.2); Mean Corpuscular HGB Conc 32.7 GM/DL (32-36); Mean Corpuscular Volume 92.4 FL (87-102); Mean Platelet Volume 10.3 FL (9.6-12.0); Monocytes % 9.3 % (1.7-12.7); Neutrophils % 39.4 % (38.7-73.9); Platelet Count 255 T/CUMM (130-400); Red Blood Count 3.84 MC/CUMM (3.8-5.5); Red Cell Distribution Width 13.2 % (9.3-17.3); White Blood Count 14.4 T/CUMM (4-12)
[2020-10-13 06:10] LABS: Albumin 2.3 G/DL (3.4-5.0); Bilirubin,Total 0.6 MG/DL (0.2-1.0); Calcium 9.3 MG/DL (8.5-10.1); Osmolality,Calculated 263.4 MOS/KG (273-304); Potassium 3.9 MMOL/L (3.5-5.1); Total Protein 5.9 G/DL (6.4-8.2)
[2020-10-13 06:27] LABS: Lymphocytes 41 % (20-55); Platelet Estimate Adequate; Segmented Neutrophils 52 % (50-85); Total Cells Counted 100
[2020-10-13 06:28] LABS: Atypical Lymphocytes Few
[2020-10-13] MEDS: DIGOXIN 0.125 MG TABLET PO SCH (09:23)
[2020-10-13] MEDS: guaiFENesin/DM ER 600-30 MG TABLET PO SCH (09:23)
[2020-10-13] MEDS: LOSARTAN 50 MG TABLET PO SCH (09:23)
[2020-10-13] MEDS: ASPIRIN EC 81 MG TABLET PO SCH (09:24)
[2020-10-13] MEDS: POTASSIUM CHLORIDE 20 MEQ TABLET PO SCH (09:24)
[2020-10-13] MEDS: PANTOPRAZOLE 40 MG TABLET PO SCH (09:24)
[2020-10-13] MEDS: RALOXIFENE 60 MG TABLET PO SCH (09:24)
[2020-10-13] MEDS: DULoxetine 30 MG CAPSULE PO SCH (09:24)
[2020-10-13] MEDS: METOPROLOL SUCCINATE XL 100 MG TABLET PO SCH (09:24)
[2020-10-13] MEDS: LEVOFLOXACIN INJ 750 MG/150 ML PREMIX IV SCH (11:57)
[2020-10-13 12:27] VITALS: BP 124/59
[2020-10-13] MEDS ORDERED: APIXABAN 5 MG TABLET PO SCH (21:00)
[2020-10-14] MEDS ORDERED: RIVAROXABAN 20 MG TABLET PO SCH ×2 (08:00→09:00)
[2020-10-14] MEDS ORDERED: FUROSEMIDE 40 MG TABLET PO SCH (09:00)
== END 2020-10-13 15:12 | disposition home health service (06) | DRG 194 ==
LOC: EDUNIT# → EDBD → N.ED 07:32 → N.EDINP 10:50 → SUATTDRO 10:50 → N.5E 11:29
PROVIDERS: ADMIT Student in an Organized Health Care Education/Training Program; ATTEND Internal Medicine